=== PATIENT | female | born 1970 | race Caucasian/White ===

== ENCOUNTER 2019-10-01 19:01 | Emergency (ER) | payer OTHER ==
[~2019-10-01] VITALS: Ht 162.6 cm; Wt 112.6 kg
[~2019-10-01 19:01] MED LIST: FLUT9.9S NAS; LEVO750T26 PO
--- NOTE | 2019-10-01 20:21 | NUR ---
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
[2019-10-01 20:31] LABS: MICROSCOPIC AUTO
--- NOTE | 2019-10-01 20:37 | NUR ---
THIS IS A 49Y F THAT COMES IN AFTER BEING SEEN IN URGENT CARE TODAY. PT REPORTS BILAT FLANK PAIN STARTING OFF AND ON SINCE SATURDAY. PT WAS INFORMED THAT SHE HAS BILAT KIDNEY STONES THAT ARE BLOCKING URINE FLOW. PT RESTING ON [employer] CORAL DAUGHTER AT BEDSIDE NO NEEDS AT THIS TIME AWAITING FURTHER ORDERS.
[2019-10-01] MEDS ORDERED: MORPHINE SULFATE 4 MG/ML, 1ML IVPush ONE (21:30)
[2019-10-01] MEDS ORDERED: ONDANSETRON 2MG/ML, 2ML IVPush ONE (21:30)
[2019-10-01] MEDS ORDERED: ONDANSETRON 2MG/ML, 2ML ONE (21:40)
[2019-10-01] MEDS ORDERED: MORPHINE SULFATE 4 MG/ML, 1ML ONE (21:41)
--- NOTE | 2019-10-01 21:51 | NUR ---
PIV STARTED, PT MEDICATED PER MAR
[2019-10-01 21:52] LABS: BASOPHILS # (AUTO) 0.03 x10^3/uL (0-0.1); BASOPHILS % (AUTO) 1 % (0-1); EOSINOPHILS # (AUTO) 0.25 x10^3/uL (0-0.4); EOSINOPHILS % (AUTO) 3 % (1-7); LYMPHOCYTES # (AUTO) 2.45 x10^3/uL (1-3.4); LYMPHOCYTES % (AUTO) 33 % (22-44); MD NO; MEAN CORPUSCULAR HEMOGLOBIN 30.7 pg (27.0-34.8); MEAN CORPUSCULAR HGB CONC 33.2 g/dL (32.4-35.8); MEAN CORPUSCULAR VOLUME 92.3 fL (80-100); MEAN PLATELET VOLUME 8.4 fL (7.4-10.4); MONOCYTES # (AUTO) 0.74 x10^3/uL (0.2-0.8); MONOCYTES % (AUTO) 10 % (2-9); NEUTROPHILS # (AUTO) 3.89 x10^3/uL (1.8-6.8); NEUTROPHILS % (AUTO) 53 % (42-75); PLATELET COUNT 236 x10^3/uL (130-400); RED BLOOD COUNT 4.26 x10^6/uL (3.82-5.3); RED CELL DISTRIBUTION WIDTH 13.9 % (9.6-15.2)
[2019-10-01 22:02] LABS: ANION GAP 4 mmol/L (5-15); CALCIUM 8.8 mg/dL (8.5-10.1); CHLORIDE 110 mmol/L (98-107); CREATININE 1.16 mg/dL (0.55-1.02)
[2019-10-01 22:30] VITALS: BP 143/73
== END 2019-10-01 23:10 | disposition home or self-care (01) ==
LOC: ED 20:48
DX: N20.0 Calculus of kidney (principal)
CPT/HCPCS: 36415; 80048; 81001; 85025; 87086; 96374; 96375; 99284; J2270; J2405